=== PATIENT | male | born 1950 | race Caucasian/White ===

== ENCOUNTER 2018-04-10 17:12 | Emergency (ER) | payer MEDICARE ==
[2018-04-10] MEDS ORDERED: Aspirin 325 mg EC Tablets PO STA (17:55)
[2018-04-10] MEDS ORDERED: Alum-Mag Hydrox-Simethicone Susp (30 mL) PO STA (17:57)
--- NOTE | 2018-04-10 18:34 | RAD ---
Date of service: 04/10/2018 PROCEDURE: CHEST RADIOGRAPH, 1 VIEW HISTORY: chest pain COMPARISON: Chest radiograph dated 02/20/2015. FINDINGS: LUNGS: Left basilar atelectasis/scarring. PLEURA: No pneumothorax or pleural fluid seen. CARDIOVASCULAR: Cardiomediastinal silhouette stably prominent. OSSEOUS STRUCTURES: Unchanged. VISUALIZED UPPER ABDOMEN: Normal. OTHER FINDINGS: None. IMPRESSION: No active disease.
[2018-04-10] MEDS ORDERED: Aspirin 325 mg EC Tablets PO ONE (18:38)
[2018-04-10] MEDS ORDERED: Alum-Mag Hydrox-Simethicone Susp (30 mL) ONE (18:39)
[2018-04-10 19:09] LABS: BASO % 0.5 % (0.0-2.0); EOS # 0.3 K/uL (0.0-0.7); EOS % 4.5 % (0.0-4.0); LYMPH # 1.7 K/uL (1.0-4.3); MEAN CELL VOLUME 84.8 fL (80.0-94.0); MEAN CORPUSCULAR HEMOGLOBIN 27.9 pg (27.0-31.0); MEAN CORPUSCULAR HGB CONC 32.9 g/dL (33.0-37.0); MEAN PLATELET VOLUME 7.5 fL (7.2-11.7); MONO # 0.6 K/uL (0.0-0.8); MONO % 8.3 % (0.0-10.0); NEUT # 4.6 K/uL (1.8-7.0); NEUT % 63.7 % (50.0-75.0); NRBC % 0.1 % (0.0-2.0); RBC 5.36 Mil/uL (4.40-5.90); RED CELL DISTRIBUTION WIDTH 13.9 % (11.5-14.5); WHITE BLOOD COUNT 7.3 K/uL (4.8-10.8)
[2018-04-10 19:35] LABS: ALB/GLOB RATIO 1.4 (1.0-2.1); ALBUMIN 4.1 g/dL (3.5-5.0); ALT/SGPT 31 U/L (21-72); AST/SGOT 30 U/L (17-59); BLOOD UREA NITROGEN 29 mg/dL (9-20); GFR AFRICAN-AMERICAN > 60; GFR NON-AFRICAN AMERICAN > 60
[2018-04-10 19:46] LABS: CK-MB 3.21 ng/mL (0.0-3.38)
--- NOTE | 2018-04-10 19:52 | C.PDOC ---
Time Seen by Provider: 04/10/18 17:43 Chief Complaint (Nursing): Chest Pain History Per: Patient Onset/Duration Of Symptoms: Hrs (since around noon today), Intermittent Episodes (lasting around only 1 minute) Current Symptoms Are (Timing): Better Severity: Moderate Quality: Burning Associated Symptoms: denies: Nausea, Dyspnea, Diaphoresis, Syncope Modifying Factors: Other Indicated Below Additional History Per: Prior Records Past Medical History Reviewed: Historical Data, Nursing Documentation, Vital Signs Vital Signs: Last Vital Signs Temp 98.1 F 04/10/18 17:23 Pulse 82 04/10/18 18:35 Resp 18 04/10/18 17:23 BP 114/73 04/10/18 18:35 Pulse Ox 95 04/10/18 17:23 - Medical History PMH: HTN, Hypothyroidism Surgical History: No Surg Hx Family History: States: Unknown Family Hx - Social History Hx Tobacco Use: No Hx Alcohol Use: No Hx Substance Use: No - Immunization History Hx Tetanus Toxoid Vaccination: No Hx Influenza Vaccination: No Hx Pneumococcal Vaccination: No Review Of Systems Except As Marked, All Systems Reviewed And Found Negative. Constitutional: Negative for: Fever, Weakness Cardiovascular: Negative for: Palpitations, Light Headedness Respiratory: Negative for: Cough, Shortness of Breath, Hemoptysis Gastrointestinal: Negative for: Nausea, Vomiting, Abdominal Pain Musculoskeletal: Negative for: Neck Pain, Back Pain, Leg Pain Skin: Negative for: Rash Neurological: Negative for: Weakness, Numbness Physical Exam - Physical Exam Appears: Non-toxic, No Acute Distress Skin: Normal Color, Warm, Dry, No Rash Head: Atraumatic, Normacephalic Eye(s): bilateral: Normal Inspection, PERRL, EOMI Neck: Normal ROM, Supple Cardiovascular: Rhythm Regular Respiratory: Normal Breath Sounds, No Accessory Muscle Use Gastrointestinal/Abdominal: Soft, No Tenderness Back: No CVA Tenderness Extremity: Normal ROM, No Pedal Edema, No Calf Tenderness Neurological/Psych: Oriented x3, Normal Motor, Normal Sensation ED Course And Treatment - Laboratory Results Result Diagrams: 04/10/18 19:02 04/10/18 19:02 ECG: Interpreted By Me, Viewed By Me ECG Rhythm: Sinus Rhythm, Nonspecific Changes ECG Interpretation: No Acute Changes Rate From EC O2 Sat by Pulse Oximetry: 95 Pulse Ox Interpretation: Normal - Radiology CXR: Viewed By Me, Read By Radiologist CXR Interpretation: Yes: No Acute Disease Progress Note: Sensation did not return after GI meds. Reassessment Condition: Improved Disposition Counseled Patient/Family Regarding: Studies Performed, Diagnosis, Need For Followup, Rx Given - Disposition Referrals: Radha Dinh MD [Medical Doctor] - Disposition: HOME/ ROUTINE Disposition Time: 19:53 Condition: STABLE Additional Instructions: Follow up with your doctor this week for further evaluation and treatment. Return to the ER if you develop chest pain, shortness of breath, dizziness, cold sweats, nausea, worsening of symptoms or if you have any other concerns. Prescriptions: Aspirin [Ecotrin] 81 mg PO DAILY #30 tabec Famotidine [Pepcid] 20 mg PO BID PRN #30 tab PRN Reason: Heartburn Instructions: Chest Pain (DC) Forms: [facility] (Al[place]ian) Print Language: ENGLISH - Clinical Impression Clinical Impression: Burning chest pain
[2018-04-10 20:14] VITALS: BP 116/80; PULSE 73; RESP 12; TEMP 97.8; O2SAT 97
--- NOTE | 2018-04-11 17:45 | CARD ---
APPROVED REPORT Date of service: 04/10/2018 EKG Measurement Heart [id number] <Conclusion> Normal sinus rhythm Possible Left atrial enlargement Possible Inferior infarct, age undetermined Abnormal ECG
== END 2018-04-10 20:08 | disposition home or self-care (01) ==
LOC: C.ER 17:12
DX: R07.9 Chest pain, unspecified (principal)

== ENCOUNTER 2018-10-07 10:32 | Outpatient (CLI) | payer MEDICARE, OTHER | END 2018-10-07 10:33 | disposition home or self-care (01) | LOC: C.RADH 10:32 ==

== ENCOUNTER 2019-02-05 14:51 | Outpatient (CLI) | payer MEDICARE, OTHER | END 2019-02-05 14:52 | disposition home or self-care (01) | LOC: C.RADH 14:51 | DX: M54.5 Low back pain (principal) ==